=== PATIENT | male | born 1985 | race Two or more races ===

== ENCOUNTER 2016-09-30 20:25 | Emergency (ER) | payer OTHER ==
[~2016-09-30] VITALS: Ht 180.3 cm; Wt 83.9 kg
[2016-09-30] MEDS ORDERED: LIDOCAINE W/ EPINEPHRINE 1% 20ML VIAL ONE (22:32)
[2016-09-30] MEDS ORDERED: LIDOCAINE W/ EPINEPHRINE 2% INJ 20ML VIAL IJ ONE (22:45)
[2016-09-30] MEDS ORDERED: LIDOCAINE W/ EPINEPHRINE 1% 20ML VIAL SC ONE (23:15)
[2016-10-01] MEDS ORDERED: CYCLOBENZAPRINE HCL 10 MG TAB PO ONE
[2016-10-01] MEDS ORDERED: IBUPROFEN 600 MG TAB PO ONE
[2016-10-01 00:02] VITALS: BP 123/85
[2016-10-01] MEDS ORDERED: TETANUS-DIPTH-ACEL PERTUSSIS 0.5ML SYRG IM ONE (00:15)
== END 2016-10-01 00:36 | disposition home or self-care (01) ==
LOC: EDBD 20:25 → EDSEX 20:42 → ER 20:42
DX: S01.81XA Laceration without foreign body of other part of head, initial encounter (principal); V49.49XA Driver injured in collision with other motor vehicles in traffic accident, initial encounter; Y93.89 Activity, other specified; Y99.9 Unspecified external cause status; Y92.89 Other specified places as the place of occurrence of the external cause; Z23 Encounter for immunization
CPT/HCPCS: 12052; 70450; 90471; 90715